=== PATIENT | male | born 1975 | race Two or more races ===

== ENCOUNTER 2017-02-13 19:23 | Emergency (ER) | payer OTHER ==
[~2017-02-13] VITALS: Ht 167.6 cm; Wt 90.7 kg
[2017-02-13 19:27] VITALS: BP 119/73
[2017-02-13] MEDS ORDERED: LIDOCAINE 1% / SOD BICARB 8.4% 20 ML VIAL. IJ ONE ×2 (19:45→19:55)
--- NOTE | 2017-02-13 19:47 | PHYS DOC ---
Past Medical History Past Medical History: No Pertinent History Past Surgical History: No Surgical History Alcohol Use: Occasionally Drug Use: None Adult General Chief Complaint Chief Complaint: HAND PROBLEM HPI HPI Patient is a 41 year old male who presents emergency Department today with complaint of lacerations to his left hand secondary to operating a chainsaw. Patient states that he lost track what was going on any was slightly distracted. States that the chainsaw skipped his left hand. Patient is right- hand dominant. He denies any additional injuries or concerns at this time. Patient reports his tetanus shot is been updated within the past year. He denies any numbness or tingling or other altered sensation in his hand. Review of Systems Review of Systems Constitutional: Denies fever or chills [] Eyes: Denies change in visual acuity, redness, or eye pain [] HENT: Denies nasal congestion or sore throat [] Respiratory: Denies cough or shortness of breath [] Cardiovascular: No additional information not addressed in HPI [] GI: Denies abdominal pain, nausea, vomiting, bloody stools or diarrhea [] : Denies dysuria or hematuria [] Musculoskeletal: Denies back pain or joint pain [] Integument: Denies rash or skin lesions [] Neurologic: Denies headache, focal weakness or sensory changes [] Endocrine: Denies polyuria or polydipsia [] Current Medications Current Medications Current Medications Medications (Trade) Dose Ordered Sig/[facility] Start Time Stop Time Status Last Admin Dose Admin Lidocaine/Sodium Bicarbonate (Buffered Lidocaine 1%) 20 ml 1X ONCE 02/13/17 19:45 02/13/17 20:32 DC 02/13/17 19:45 20 ML Physical Exam Physical Exam Constitutional: Well developed, well nourished, no acute distress, non-toxic appearance. [] HENT: Normocephalic, atraumatic, bilateral external ears normal, oropharynx moist, no oral exudates, nose normal. [] Eyes: PERRLA, EOMI, conjunctiva normal, no discharge. [] Neck: Normal range of motion, no tenderness, supple, no stridor. [] Cardiovascular:Heart rate regular rhythm, no murmur [] Lungs & Thorax: Bilateral breath sounds clear to auscultation [] Abdomen: Bowel sounds normal, soft, no tenderness, no masses, no pulsatile masses. [] Skin: Warm, dry, no erythema, no rash. [] Back: No tenderness, no CVA tenderness. [] Extremities: Left hand with 3 lacerations that extend into the subcutaneous fat. To our near the first web space distal to the thenar muscle. The other is on the ulnar aspect of the palm proximal to the fifth MCP J flexor line. There is no evidence of these lacerations extending deeper than the subcutaneous fat. Patient is able to flex and extend all 5 fingers at each joint. There is no active bleeding. His fingers are neurovascularly intact with capillary refill less than 2 seconds. Neurologic: Alert and oriented X 3, normal motor function, normal sensory function, no focal deficits noted. [] Psychologic: Affect normal, judgement normal, mood normal. [] Current Patient Data Vital Signs Vital Signs Date Time Temp Pulse Resp B/P Pulse Ox O2 Delivery O2 Flow Rate FiO2 02/13/17 19:27 100.9 86 18 99 Room Air 100.9 EKG EKG [] Radiology/Procedures Radiology/Procedures Procedure #1: 1.5 cm laceration to the palm of patient's left hand, proximal to the fifth MCP J that extends into the subcutaneous fat. Wound margins were anesthetized with buffered 1% lidocaine. Wound was cleansed with Betadine solution and rinsed with copious amounts of saline. Wound was explored for foreign bodies. No foreign bodies were found. The laceration did not extend into the fascia of the tendons. Wound margins were approximated utilizing 5-0 nylon in a simple interrupted fashion for total of 3 stitches. Procedure #2: Combined a laceration to close lacerations close together with a total length of 2.5 cm just lateral to the thenar aspect of the palm of the left hand. Laceration extends into the subcutaneous fat. Wound margins were anesthetized with buffered 1% lidocaine. Wound was cleansed with Betadine solution and rinsed with copious amounts of saline. Wound is explored for foreign bodies. No foreign bodies were found. His laceration did not extend into the fascia of the tendons. Wound margins were approximated utilizing 5-0 nylon in a simple interrupted fashion for total of 4 stitches. These to linear lacerations were sewn together with a ladder stitch fashion. Patient tolerated the procedures well. Course & Med Decision Making Course & Med Decision Making Pertinent Labs and Imaging studies reviewed. (See chart for details) [] Dragon Disclaimer Dragon Disclaimer This electronic medical record was generated, in whole or in part, using a voice recognition dictation system. Departure Departure Impression: Primary Impression: Laceration Disposition: 01 HOME, SELF-CARE Condition: IMPROVED Patient Instructions: Laceration Care, Adult, [id number] Additional Instructions: 1. Stitches need to be removed in 7-10 days. 2. Review the discharge instructions provided for self-care and reasons to return to the emergency department. 3. Contact primary care doctor's office in the morning to schedule follow-up appointment for next week for wound check and stitch removal. GUNNAR BORREGO Feb 13, 2017 19:47
== END 2017-02-13 20:29 | disposition home or self-care (01) ==
LOC: ER 19:23
DX: S61.412A Laceration without foreign body of left hand, initial encounter (principal); W29.3XXA Contact with powered garden and outdoor hand tools and machinery, initial encounter; Y93.89 Activity, other specified; Y99.8 Other external cause status; Y92.89 Other specified places as the place of occurrence of the external cause
CPT/HCPCS: 12002; 99283-25